=== PATIENT | male | born 2000 | race Caucasian/White ===

== ENCOUNTER 2025-08-09 22:12 | Inpatient (IN) | payer BC ==
[~2025-08-09] VITALS: Ht 177.8 cm; Wt 82.0 kg
[2025-08-09 22:16] VITALS: O2SAT 100
[2025-08-09 23:52] LABS: BASOPHILS % 0.3 % (0.0-2.0); EOSINOPHILS % 0.9 % (0.0-5.0); HEMATOCRIT. 45.2 % (42.0-52.0); HEMOGLOBIN. 15.2 g/dL (14.0-18.0); LYMPHOCYTES % 9.1 % (20.0-50.0); MEAN PLATELET VOLUME 8.2 fl (7.4-10.4); MONOCYTES % 5.9 % (2.0-8.0); NEUTROPHILS % 83.8 % (40.0-76.0); PLATELET 258 x1000/uL (130-400); RED BLOOD CELL COUNT 5.30 mill/uL (4.7-6.1); RED CELL DISTRIBUTION WIDTH 13.2 % (11.6-14.6)
[2025-08-09] MEDS: MORPHINE SULFATE 4 MG/ML INJ (FOR IV/IM USE) IV ONE (23:52)
[2025-08-09] MEDS: ONDANSETRON HCL 4MG/2ML INJ IV ONE (23:52)
[2025-08-10 00:06] LABS: CREATININE 1.2 mg/dL (0.6-1.3); ETHANOL BLOOD < 10 mg/dL (<10); UREA NITROGEN BLOOD 8 mg/dL (9-23)
[2025-08-10] MEDS: MORPHINE SULFATE 4 MG/ML INJ (FOR IV/IM USE) IV NR (00:29)
[2025-08-10] MEDS: ONDANSETRON HCL 4MG/2ML INJ IV NR (00:55)
[2025-08-10] MEDS: ACETAMINOPHEN 1000MG/100ML 100 ML IV ONE (02:34)
[2025-08-10] MEDS: HYDROMORPHONE HCL/PF 2MG/ML INJ IV ONE (02:34)
[2025-08-10 05:10] VITALS: BP 137/89; PULSE 96; RESP 19; TEMP 36.7; O2SAT 100
[2025-08-10 05:22] VITALS: O2SAT 100
[2025-08-10 05:44] VITALS: BP 134/91; PULSE 104; RESP 18; TEMP 98.06
== END 2025-08-10 07:47 | disposition short-term general hospital (02) | DRG 534 ==
LOC: ER 22:12 → 6EST 08-10 05:15 → EDBEDREQ 08-10 05:20 → EDBEDREQDT 08-10 05:20 → EDBEDREQTM 08-10 05:20 → ENRESERV 08-10 05:42
PROVIDERS: ADMIT Internal Medicine; ATTEND Internal Medicine
DX: S72.352A Displaced comminuted fracture of shaft of left femur, initial encounter for closed fracture (principal); Y92.89 Other specified places as the place of occurrence of the external cause; Y99.8 Other external cause status; V18.4XXA Pedal cycle driver injured in noncollision transport accident in traffic accident, initial encounter; Y93.55 Activity, bike riding; Z79.899 Other long term (current) drug therapy
CPT/HCPCS: 36415; 71045; 72192; 73552; 73562; 80048; 80320; 85025; 99285; J1171; J2270; J2405; G0480; J0131